=== PATIENT | female | born 1985 | race Caucasian/White ===

== ENCOUNTER 2018-06-01 22:48 | Emergency (ER) | payer SELFPAY ==
--- NOTE | 2018-06-01 23:59 | NUR ---
PATIENT WAS CALLED SEVERAL TIMES IN SPAN OF 1HR. PATIENT WAS NOT PRESENT. PATIENT WAS NOT TRIAGED OR SEEN BY ERMD
== END 2018-06-02 00:22 | disposition left against medical advice (07) ==
LOC: ER 22:49
DX: Z53.21 Procedure and treatment not carried out due to patient leaving prior to being seen by health care provider (principal)